=== PATIENT | female | born 1960 | race Asian ===

== ENCOUNTER → 2023-08-20 | Day surgery (SDC) | payer OTHER ==
[~2023-08-20] MED LIST: ACETAMINOPHEN INJECTION 100 ML IVPB ONE; ISOSULFAN BLUE 50 MG/5 ML VIAL SQ ONE; LIDOCAINE HCL 1%, 10 MG/ML (20ML VIAL) ONE; ROPIVACAINE HCL 0.5% 30ML VIAL ONE
== END | disposition home or self-care (01) ==
LOC: JRADUS-SUR 07:44
PROVIDERS: ATTEND Surgery
PROC: BH40ZZZ Ultrasonography of Right Breast (ICD-10-PCS; principal; 2023-08-20)
DX: C50.911 Malignant neoplasm of unspecified site of right female breast (principal); C77.3 Secondary and unspecified malignant neoplasm of axilla and upper limb lymph nodes
CPT/HCPCS: 10035; A4648; 19281; 71046-TC-FY; 77065-TC; 93005; 93010

== ENCOUNTER 2023-08-21 05:13 | Inpatient (IN) | payer OTHER ==
[2023-08-08 15:12] VITALS: BMI 22.6
[2023-08-21] MEDS ORDERED: SUCCINYLCHOLINE CHLORIDE 200 MG/10 ML SYRINGE ONE (07:38)
[2023-08-21] MEDS ORDERED: SODIUM CHLORIDE 0.9% P/F 10 ML VIAL IJ ONE (07:39)
[2023-08-21] MEDS ORDERED: LIDOCAINE HCL/PF 2% SDV 5ML VIAL ONE ×2 (07:39→12:38)
[2023-08-21] MEDS ORDERED: ROCURONIUM BROMIDE 50 MG/5 ML SYRINGE ONE (07:39)
[2023-08-21] MEDS ORDERED: DEXAMETHASONE SOD PHOSPHATE 4 MG/1 ML VIAL ONE (07:39)
[2023-08-21] MEDS ORDERED: ONDANSETRON 4 MG/2 ML VIAL ONE ×2 (07:39→09:29)
[2023-08-21] MEDS ORDERED: ceFAZolin SODIUM 1 GM VIAL ONE (07:39)
[2023-08-21] MEDS ORDERED: SEVOFLURANE 250 ML BTL ONE (07:41)
[2023-08-21] MEDS ORDERED: PROPOFOL 100 ML ONE (07:48)
[2023-08-21] MEDS ORDERED: MIDAZOLAM HCL 2 MG/2 ML SINGLE DOSE VIAL ONE (07:50)
[2023-08-21] MEDS ORDERED: FENTANYL CITRATE/PF 50 MCG/ML VIAL ONE ×2 (07:50→12:38)
[2023-08-21] MEDS ORDERED: MAGNESIUM SULF 50% (8.12 MEQ/2 ML-1 GM VIAL) ONE (07:54)
[2023-08-21] MEDS ORDERED: KETAMINE HCL 200 MG/20 ML VIAL ONE (07:57)
[2023-08-21] MEDS ORDERED: GLYCOPYRROLATE 0.2 MG/1 ML VIAL ONE (07:57)
[2023-08-21] MEDS: ceFAZolin SODIUM 1 GM VIAL IVPB ONE (09:00)
[2023-08-21] MEDS ORDERED: HYDROmorphone HCl 2 MG/ML VIAL ONE (09:09)
[2023-08-21] MEDS ORDERED: PHENYLEPHRINE HCL 10 MG/1 ML SINGLE DOSE VIAL ONE (09:14)
[2023-08-21] MEDS: LIDOCAINE 1% P/F 10 MG/ML VIAL INF ONE (09:17)
[2023-08-21] MEDS ORDERED: PROPOFOL 40 ML ONE (09:29)
[2023-08-21] MEDS ORDERED: SUGAMMADEX SODIUM 200 MG/2 ML VIAL ONE (12:45)
[2023-08-21] MEDS ORDERED: oxyCODONE HCL 5 MG TABLET PO PRN ×2 (14:16)
[2023-08-21] MEDS: LACTATED RINGERS SOLUTION 1,000 ML IV SCH (16:45)
[2023-08-21 16:47] VITALS: RESP 18
[2023-08-21] MEDS: CEFAZOLIN SODIUM 2 GM in DEXTROSE 5%-WATER 100 ML IVPB SCH (16:55)
[2023-08-21] MEDS: metFORMIN HCL 500 MG TABLET (FP) PO SCH (16:55)
[2023-08-21] MEDS: ONDANSETRON 4 MG/2 ML VIAL IVPUSH PRN (16:56)
[2023-08-21] MEDS: ACETAMINOPHEN 1000 MG/100 ML BAG IVPB SCH (18:08)
[2023-08-21] MEDS: DOCUSATE SODIUM 100 MG CAPSULE (FP) PO SCH (21:21)
[2023-08-22 08:36] VITALS: TEMP 98.2
[2023-08-22] MEDS: HYDROCHLOROTHIAZIDE 12.5 MG CAPSULE (FP) PO SCH (09:53)
[2023-08-22] MEDS: amLODIPine BESYLATE 10 MG TABLET (FP) PO SCH (09:53)
[2023-08-22 10:52] LABS: BASO % 0.4 % (0-2.0); HEMATOCRIT 30.5 % (32.4-45.2); HEMOGLOBIN 9.7 GM/dL (10.7-15.3); LYMPH % 23.7 % (8-40); MCH 27.9 pg (25.7-33.7); MCHC 31.7 g/dl (32.0-36.0); MONO % 8.7 % (3.8-10.2); NEUT % 67.2 % (42.8-82.8); PLATELET COUNT 147 10^3/uL (134-434); RBC 3.47 M/mm3 (3.60-5.2); RDW 13.7 % (11.6-15.6)
[2023-08-22] MEDS: EMPAGLIFLOZIN (JARDIANCE) 25 MG TABLET PO SCH (10:56)
[2023-08-22 14:26] VITALS: BP 114/54; PULSE 80
== END 2023-08-22 15:50 | disposition home or self-care (01) | DRG 362 ==
LOC: J2C 05:13 → J8W 16:36
PROVIDERS: ADMIT Surgery; ATTEND Surgery
PROC: 0HTT0ZZ Resection of Right Breast, Open Approach (ICD-10-PCS; principal; 2023-08-21 08:00)
PROC: 0HHT0NZ Insertion of Tissue Expander into Right Breast, Open Approach (ICD-10-PCS; 2023-08-21 08:00)
PROC: 07B50ZX Excision of Right Axillary Lymphatic, Open Approach, Diagnostic (ICD-10-PCS; 2023-08-21 08:00)
PROC: 0HRT0JZ Replacement of Right Breast with Synthetic Substitute, Open Approach (ICD-10-PCS; 2023-08-21 08:00)
DX: C50.911 Malignant neoplasm of unspecified site of right female breast (principal); I10 Essential (primary) hypertension; E11.9 Type 2 diabetes mellitus without complications
CPT/HCPCS: 36415; 76098-TC-FY; 78195-TC; 80053; 81003; 82962; 85025; 85610; 86850; 86900; 86901; 88307-TC; 88309-TC; 94760; A9541; J0131; Q4116

== ENCOUNTER 2024-04-21 05:12 | Day surgery (SDC) | payer OTHER ==
[2024-04-21] MEDS ORDERED: PROPOFOL 20 ML ONE (07:42)
[2024-04-21] MEDS ORDERED: ROCURONIUM BROMIDE 50 MG/5 ML SYRINGE ONE ×2 (07:42)
[2024-04-21] MEDS ORDERED: BUPIVACAINE HCL/PF 0.25% (2.5MG/ML) 10 ML VIAL ONE (08:13)
[2024-04-21] MEDS ORDERED: MIDAZOLAM HCL 2 MG/2 ML SINGLE DOSE VIAL ONE (08:16)
[2024-04-21] MEDS ORDERED: SUCCINYLCHOLINE CHLORIDE 200 MG/10 ML SYRINGE ONE (08:22)
[2024-04-21] MEDS ORDERED: ceFAZolin SODIUM 1 GM VIAL ONE (08:28)
[2024-04-21] MEDS: ceFAZolin SODIUM 1 GM VIAL IVPB ONE (08:34)
[2024-04-21] MEDS: BUPIVACAINE HCL/PF 0.25% (2.5MG/ML) 10 ML VIAL IJ ONE ×2 (08:40)
[2024-04-21] MEDS ORDERED: ONDANSETRON 4 MG/2 ML VIAL IVPUSH PRN ×2 (10:12→13:01)
[2024-04-21] MEDS ORDERED: oxyCODONE HCL 5 MG TABLET PO ONE (10:13)
[2024-04-21] MEDS ORDERED: LACTATED RINGERS SOLUTION 1,000 ML IV SCH ×2 (10:15→13:15)
[2024-04-21 11:04] VITALS: RESP 18
[2024-04-21 11:23] VITALS: BP 123/55; PULSE 75; TEMP 97.7
== END 2024-04-21 11:43 | disposition home or self-care (01) ==
LOC: JASUSAT 05:12
PROVIDERS: ATTEND Plastic Surgery
PROC: 0HNT0ZZ Release Right Breast, Open Approach (ICD-10-PCS; principal; 2024-04-21 11:00)
DX: Z42.1 Encounter for breast reconstruction following mastectomy (principal); Z85.3 Personal history of malignant neoplasm of breast
CPT/HCPCS: 82962; 88300-TC; 94760; C1789

== ENCOUNTER 2024-09-17 06:09 | Day surgery (SDC) | payer OTHER ==
[2024-09-15 15:24] VITALS: BMI 24.5
[2024-09-17] MEDS ORDERED: LIDOCAINE HCL/PF 2% SDV 5ML VIAL ONE (07:13)
[2024-09-17] MEDS ORDERED: ONDANSETRON 4 MG/2 ML VIAL ONE (07:13)
[2024-09-17] MEDS ORDERED: METOCLOPRAMIDE HCL INJECTION 10 MG/2 ML VIAL ONE (07:13)
[2024-09-17] MEDS ORDERED: ceFAZolin SODIUM 1 GM VIAL ONE (07:13)
[2024-09-17] MEDS ORDERED: DEXAMETHASONE SOD PHOSPHATE 4 MG/1 ML VIAL ONE (07:13)
[2024-09-17] MEDS ORDERED: SUCCINYLCHOLINE CHLORIDE 200 MG/10 ML SYRINGE ONE (07:19)
[2024-09-17] MEDS ORDERED: PROPOFOL 20 ML ONE ×2 (07:20→08:50)
[2024-09-17] MEDS ORDERED: SODIUM CHLORIDE 0.9% P/F 10 ML VIAL IJ ONE (07:22)
[2024-09-17] MEDS ORDERED: MIDAZOLAM HCL 2 MG/2 ML SINGLE DOSE VIAL ONE (07:25)
[2024-09-17] MEDS ORDERED: PROPOFOL 40 ML ONE (08:19)
[2024-09-17] MEDS ORDERED: HYDROmorphone HCL/PF 1 MG/ML VIAL ONE (08:35)
[2024-09-17] MEDS ORDERED: BUPIVACAINE HCL/PF 2.5 MG/ML - 30 ML VIAL IJ ONE (09:18)
[2024-09-17] MEDS ORDERED: oxyCODONE HCL 5 MG TABLET PO PRN (09:29)
[2024-09-17] MEDS ORDERED: PHENYLEPHRINE HCL 10 MG/1 ML SINGLE DOSE VIAL ONE (09:34)
[2024-09-17 11:10] VITALS: TEMP 97.2
[2024-09-17 12:41] VITALS: BP 132/70; PULSE 76; RESP 18
== END 2024-09-17 12:35 | disposition home or self-care (01) ==
LOC: FASU 06:09
PROVIDERS: ATTEND Plastic Surgery
PROC: 0HQU0ZZ Repair Left Breast, Open Approach (ICD-10-PCS; principal; 2024-09-17 08:36)
DX: Z85.3 Personal history of malignant neoplasm of breast (principal)
CPT/HCPCS: 82962; 88305-TC; 94760